=== PATIENT | female | born 1940 | race Two or more races ===

== ENCOUNTER 2019-09-10 16:30 | Inpatient (IN) | payer OTHER ==
[~2019-09-10] VITALS: Ht 154.9 cm; Wt 102.1 kg
[2019-09-10] MEDS ORDERED: PLAVIX75 MG (16:58)
[2019-09-10] MEDS ORDERED: HUMALOG100 UNIT/2 (16:58)
[2019-09-10] MEDS ORDERED: NEURONTIN600 M1 (16:58)
[2019-09-10] MEDS ORDERED: LANTUS SOL100 UNIT/1 (16:58)
[2019-09-10] MEDS ORDERED: SIMVASTATIN5 MG (16:59)
--- NOTE | 2019-09-10 17:00 | NUR ---
SE RECIBE PACIENTE QUE REIFERE DOLOR DE DEDO ANGEL DEL PIE RADHA LUEGO DE DELFINA REALIZADO UN PROCEDIMIENTO CON [facility]. [facility] SE MUESTRA INFLAMADO Y CALIENTE AL TACTO. NO SE MUESTRA ENROJECIDO.
--- NOTE | 2019-09-10 18:01 | NUR ---
NO SE ENCUENTRA PTE EN EL AREA DE ER.
--- NOTE | 2019-09-10 18:48 | NUR ---
PTE EVALUADA POR DR WAY QUIEN ORDENA EL [place]. SE ORIENTA SOBRE EL MISMO, LO CUAL REFIERE ENTENDER. SE REALIZAN PRUEBAS DE LABORATORIO Y SE ADMINISTRA MEDICAMENTOS ROSE ORDEN MEDICA Y SIGUIENDO MEDIDAS ASEPTICAS.
--- NOTE | 2019-09-10 23:58 | NUR ---
SE RECIBE PACIENTE EN CAMA ALERTA Y ORIENTADA X3 CON BARANDAS ELEVADAS Y CABECERA A 30 GRADOS. AREA DE VENOPUNCION PATENTE Y JANE DE EDEMA O ERITEMA EN SALINE LOCK EN MANO IZQUIERDA. PACIENTE NIEGA SINTOMAS, SE MANTIENE BAJO OBSERVACION POR CAMBIOS.
--- NOTE | 2019-09-11 07:06 | NUR ---
PACIENTE ALERTA Y ORIENTADO POR BIB ESFERAS EN CAMA EN COMPANIA DE FAMILIAR. SE OBSERVA H/L PATENTE JANE DE EDEMA Y ENROJECIMIENTO. BUEN PATRON RESPIRATORIO Y PIEL TIBIA AL TACTO. PEDIENTE CONSULTA CON DR. GOFF.
== END 2019-09-22 18:55 | disposition home or self-care (01) | DRG 622 ==
LOC: ER 16:30 → MEDJ 09-11 09:58
PROVIDERS: ADMIT Internal Medicine
PROC: CP1D1ZZ Planar Nuclear Medicine Imaging of Left Lower Extremity using Technetium 99m (Tc-99m) (ICD-10-PCS; 2019-09-12)
PROC: 3E0F7GC Introduction of Other Therapeutic Substance into Respiratory Tract, Via Natural or Artificial Opening (ICD-10-PCS; 2019-09-12)
PROC: 0JBR0ZZ Excision of Left Foot Subcutaneous Tissue and Fascia, Open Approach (ICD-10-PCS; principal; 2019-09-13)
PROC: B246ZZZ Ultrasonography of Right and Left Heart (ICD-10-PCS; 2019-09-19)
PROC: 30233N1 Transfusion of Nonautologous Red Blood Cells into Peripheral Vein, Percutaneous Approach (ICD-10-PCS; 2019-09-20)
PROC: BT43ZZZ Ultrasonography of Bilateral Kidneys (ICD-10-PCS; 2019-09-22)
DX: E11.621 Type 2 diabetes mellitus with foot ulcer (principal); I50.31 Acute diastolic (congestive) heart failure; L03.116 Cellulitis of left lower limb; L97.425 Non-pressure chronic ulcer of left heel and midfoot with muscle involvement without evidence of necrosis; E11.52 Type 2 diabetes mellitus with diabetic peripheral angiopathy with gangrene; I96 Gangrene, not elsewhere classified; I25.810 Atherosclerosis of coronary artery bypass graft(s) without angina pectoris; M86.172 Other acute osteomyelitis, left ankle and foot; J98.11 Atelectasis; J45.21 Mild intermittent asthma with (acute) exacerbation; I13.0 Hypertensive heart and chronic kidney disease with heart failure and stage 1 through stage 4 chronic kidney disease, or unspecified chronic kidney disease; E87.5 Hyperkalemia; E11.628 Type 2 diabetes mellitus with other skin complications; E11.65 Type 2 diabetes mellitus with hyperglycemia; E11.22 Type 2 diabetes mellitus with diabetic chronic kidney disease; E11.40 Type 2 diabetes mellitus with diabetic neuropathy, unspecified; I11.0 Hypertensive heart disease with heart failure; D63.8 Anemia in other chronic diseases classified elsewhere; N18.3 Chronic kidney disease, stage 3 (moderate); B95.61 Methicillin susceptible Staphylococcus aureus infection as the cause of diseases classified elsewhere; B96.7 Clostridium perfringens [C. perfringens] as the cause of diseases classified elsewhere; B95.2 Enterococcus as the cause of diseases classified elsewhere; N17.8 Other acute kidney failure; Z79.4 Long term (current) use of insulin

== ENCOUNTER 2020-08-14 10:31 | Emergency (ER) | payer OTHER ==
[~2020-08-14] VITALS: Ht 162.6 cm; Wt 108.9 kg
[~2020-08-14 10:31] MED LIST: HUMALOG100 UNIT/2; LANTUS SOL100 UNIT/1; NEURONTIN600 M1; PLAVIX75 MG; SIMVASTATIN5 MG
[2020-08-14] MEDS ORDERED: DERMACINRX5000 UNIT PO (11:05)
[2020-08-14] MEDS ORDERED: AVAPRO150 MG PO (11:05)
[2020-08-14] MEDS ORDERED: PLAVIX75 MG PO (11:06)
[2020-08-14] MEDS ORDERED: VITAMIN B122500 MCG PO (11:06)
[2020-08-14] MEDS ORDERED: DIALYVITE 800-1 EACH PO (11:07)
[2020-08-14] MEDS ORDERED: TOPROL XL50 M1 PO (11:07)
[2020-08-14] MEDS ORDERED: PROTONIX40 MG PO (11:08)
[2020-08-14] MEDS ORDERED: LIPITOR40 MG PO (11:08)
[2020-08-14] MEDS ORDERED: CARAFATE1 GM PO (22:48)
[2020-08-14] MEDS ORDERED: PEPCID AC20 MG PO (22:48)
== END 2020-08-14 23:00 | disposition home or self-care (01) ==
LOC: ER 10:31
DX: K29.70 Gastritis, unspecified, without bleeding (principal); R12 Heartburn; Z03.818 Encounter for observation for suspected exposure to other biological agents ruled out

== ENCOUNTER 2021-01-13 09:05 | Inpatient (IN) | payer OTHER ==
[~2021-01-13] VITALS: Ht 157.5 cm; Wt 103.4 kg
[~2021-01-13 09:05] MED LIST changes: +AVAPRO150 MG PO; +CARAFATE1 GM PO; +DERMACINRX5000 UNIT PO; +DIALYVITE 800-1 EACH PO; +LIPITOR40 MG PO; +PEPCID AC20 MG PO; +PLAVIX75 MG PO; +PROTONIX40 MG PO; +TOPROL XL50 M1 PO; +VITAMIN B122500 MCG PO
--- NOTE | 2021-01-13 09:25 | NUR ---
SE RECIBE PACIENTE ALERTA Y ORIENTADA EN PATRICK BIB ESFERAS. PACIENTE REFIERE TENER UN ABSCESO EN EL PIES DERECHO HACE 2 SEMANAS. SE OBSERVA AREA MENDEZ Y SUPURANDO
--- NOTE | 2021-01-13 10:22 | NUR ---
PTE ALERTA Y ORIENTADA POR BIB ESFERAS CON BUEN PATRON REPSIRATORIO. SE LE ORIENTA SOBRE TRATAMIENTO A SEGUIR, NEGRITO REFIERE ENTENDER. SE COLECTA MUESTRAS, SE CANALIZA Y SE ADMINISTRA MEDICAMENTO ROSE ORDEN MEDICA UTILIZANDO MEDIDAS ASEPTICAS. SE MANTIENE BAJO OBSERVACION POR CAMBIOS. PENDIENTE SKIN TEAM EVALUATION Y EMORY X
--- NOTE | 2021-01-13 16:18 | NUR ---
PACIENTE ALERTA Y ORIENTADA EN CAMA CON BUEN PATRON RESPIRATORIO Y PIEL TIBIA AL TACO. SE OBSERVA H/L PATENTE JANE DE EDEMA Y ERITEMA. PENDIENTE CONSULTA CON DR. ANTONIO.
--- NOTE | 2021-01-13 17:05 | NUR ---
SE FRANCES Y REPORTAN S/V. PTE PRESENTA BP MANUAL: 160/100MMHG. SE NOTIFICA A EL CUAL ORDENA ADMINISTRAR MEDICAMENTO VASOTEC 1.25MG IV STAT. SE ORIENTA PTE SOBRE ORDEN DE MEDICAMENTO REFIERE COMPRENDER. SE ADMINISTRA MEDICAMENTO, BAJO MEDIDAS ASEPTICAS.
--- NOTE | 2021-01-13 19:40 | NUR ---
SE NOTIFICA A MS. KYUNG SLOAN'S PENDIENTES.
[2021-01-14] MEDS ORDERED: VALSARTAN-HCTZ1 EAC3 (10:11)
[2021-01-14] MEDS ORDERED: SIMBRINZA 1%-0.28 ML (10:11)
[2021-01-14] MEDS ORDERED: LUMIGAN2.5 M1 (10:11)
[2021-01-14] MEDS ORDERED: PENTOXIFYLLINE400 MG (10:12)
[2021-01-14] MEDS ORDERED: FOLIC ACID1 MG (10:12)
[2021-01-14] MEDS ORDERED: ALPHAGAN P5 M2 (10:12)
== END 2021-03-01 19:02 | disposition home or self-care (01) | DRG 629 ==
LOC: ER 09:05 → MEDJ 22:34
PROVIDERS: ADMIT Internal Medicine; ATTEND Internal Medicine
PROC: 4A12X4Z Monitoring of Cardiac Electrical Activity, External Approach (ICD-10-PCS; 2021-01-14)
PROC: 0QBR0ZZ Excision of Left Toe Phalanx, Open Approach (ICD-10-PCS; principal; 2021-01-15)
PROC: 8E0ZXY6 Isolation (ICD-10-PCS; 2021-01-15)
PROC: 30233N1 Transfusion of Nonautologous Red Blood Cells into Peripheral Vein, Percutaneous Approach (ICD-10-PCS; 2021-01-20)
PROC: 3E0F7SF Introduction of Other Gas into Respiratory Tract, Via Natural or Artificial Opening (ICD-10-PCS; 2021-01-22)
PROC: 05HM33Z Insertion of Infusion Device into Right Internal Jugular Vein, Percutaneous Approach (ICD-10-PCS; 2021-01-29)
PROC: 02H633Z Insertion of Infusion Device into Right Atrium, Percutaneous Approach (ICD-10-PCS; 2021-02-04)
PROC: 5A1D70Z Performance of Urinary Filtration, Intermittent, Less than 6 Hours Per Day (ICD-10-PCS; 2021-02-05)
PROC: 0JH63XZ Insertion of Tunneled Vascular Access Device into Chest Subcutaneous Tissue and Fascia, Percutaneous Approach (ICD-10-PCS; 2021-02-17)
PROC: 02H633Z Insertion of Infusion Device into Right Atrium, Percutaneous Approach (ICD-10-PCS; 2021-02-17)
DX: E11.69 Type 2 diabetes mellitus with other specified complication (principal); L02.612 Cutaneous abscess of left foot; M86.172 Other acute osteomyelitis, left ankle and foot; E11.52 Type 2 diabetes mellitus with diabetic peripheral angiopathy with gangrene; I96 Gangrene, not elsewhere classified; J45.31 Mild persistent asthma with (acute) exacerbation; J98.11 Atelectasis; E87.2 Acidosis; I13.11 Hypertensive heart and chronic kidney disease without heart failure, with stage 5 chronic kidney disease, or end stage renal disease; E11.621 Type 2 diabetes mellitus with foot ulcer; Z20.822 Contact with and (suspected) exposure to COVID-19; E11.65 Type 2 diabetes mellitus with hyperglycemia; D63.8 Anemia in other chronic diseases classified elsewhere; B96.1 Klebsiella pneumoniae [K. pneumoniae] as the cause of diseases classified elsewhere; B96.4 Proteus (mirabilis) (morganii) as the cause of diseases classified elsewhere; E11.22 Type 2 diabetes mellitus with diabetic chronic kidney disease; N18.6 End stage renal disease